=== PATIENT | male | born 1955 | race Caucasian/White ===

== ENCOUNTER → 2017-06-24 | Day surgery (SDC) | payer BC ==
[~2017-06-24] MED LIST: LIDOCAINE 1% PF 2 ML VIAL.; PROPOFOL 20 ML IV
[2017-06-24] MEDS: IV RINGERS,LACTATED 1000ML 1,000 ML IV (16:28)
== END | disposition home or self-care (01) ==
LOC: SURG 15:57
DX: K21.0 Gastro-esophageal reflux disease with esophagitis (principal); K29.50 Unspecified chronic gastritis without bleeding; K44.9 Diaphragmatic hernia without obstruction or gangrene; E78.5 Hyperlipidemia, unspecified; I10 Essential (primary) hypertension; E78.00 Pure hypercholesterolemia, unspecified; F10.99 Alcohol use, unspecified with unspecified alcohol-induced disorder; Z90.49 Acquired absence of other specified parts of digestive tract; Z88.0 Allergy status to penicillin; Z88.2 Allergy status to sulfonamides; Z79.82 Long term (current) use of aspirin; Z72.89 Other problems related to lifestyle
CPT/HCPCS: 43239; 88305; J2704

== ENCOUNTER → 2020-03-28 | Outpatient (CLI) | payer BC ==
[2017-06-24 17:56] VITALS: BP 150/94
[~2020-03-28] MED LIST changes: +ASPI325T8 PO; +CARV12.511 PO; +LANS30CA66 PO; -LIDOCAINE 1% PF 2 ML VIAL.; -PROPOFOL 20 ML IV; +SIMV80TA PO
--- NOTE | 2020-03-28 12:42 | RAD ---
EXAMINATION: Magnetic resonance imaging (MRI) of the lumbar spine without contrast 03/28/2020 11:15 AM HISTORY: Low back pain. Left sciatic nerve pain. TECHNIQUE: Multiplanar multi-weighted MRI of the lumbar spine was performed without intravenous contrast using the standard lumbar spine protocol. Contrast information: None administered. COMPARISON: None available. FINDINGS: There is minimal retrolisthesis of L4 on L5 and L5 on S1. Disc heights are maintained. Marrow signal intensity is normal in all sequences. There is disc desiccation at L2-L3, L3-L4 and L4-L5. Conus medullaris terminates at T12-L1. Distal spinal cord signal intensity is normal in all sequences. There is mild anterior marginal osteophytosis. Abdominal aorta is normal in caliber. No suspicious intraperitoneal abnormality is identified. Visualized portions of the sacrum appear intact. Paraspinal soft tissues are normal. L1-L2: The disc is normal in configuration. There is no facet arthropathy. There is no neuroforaminal stenosis. There is no spinal canal stenosis. L2-L3: There is a mild disc bulge. Mild facet arthropathy. Mild bilateral neuroforaminal stenosis. No spinal canal stenosis. L3-L4: There is a mild sequential disc bulge. Mild facet arthropathy. Mild to moderate left neuroforaminal stenosis. No spinal canal stenosis. There is a posteriorly projecting left facet synovial cyst measuring 3 mm. L4-L5: There is a disc bulge with central disc protrusion. Mild facet arthropathy ligamentum flavum infolding. Moderate bilateral neural foraminal stenosis, right greater than left. No significant spinal canal stenosis. L5-S1: The disc is normal in configuration. There is no facet arthropathy. There is no neuroforaminal stenosis. There is no spinal canal stenosis. IMPRESSION: Mild degenerative changes of the lumbar spine as described in detail above. Electronically signed by: Caprice Aguilera MD (03/28/2020 12:39 PM) [facility]
== END ==
LOC: MRI 10:48
PROVIDERS: ATTEND Family Medicine
DX: M47.816 Spondylosis without myelopathy or radiculopathy, lumbar region (principal); M43.17 Spondylolisthesis, lumbosacral region; M25.78 Osteophyte, vertebrae
CPT/HCPCS: 72148

== ENCOUNTER → 2020-04-25 | Outpatient (CLI) | payer BC ==
[2017-06-24 17:56] VITALS: BP 150/94
[~2020-04-25] MED LIST changes: +ACET500T68 PO; +IOHEXOL 180 MG/ML 10 ML VIAL. ONE; +OMEP20CA16 PO; +methylPREDNISolone ACETATE 40 MG/ML VIAL. ONE; +methylPREDNISolone ACETATE 80 MG/ML VIAL. ONE
--- NOTE | 2020-04-25 12:37 | PDOC1 ---
INITIAL PAIN CONSULT DATE OF SERVICE: DOS: DATE: 04/25/20 TIME: 12:31 CHIEF COMPLAINT: Chief Complaint: Low back and left lower extremity pain HISTORY OF PRESENT ILLNESS: 64-year-old male presents history of pain low back left lower extremity with 2 months now without any specific injury activities being increase his activity with decorating some [place] items and lifting boxes full of the renogram from his attic which seem to exacerbate the pain to some extent and is gotten worse since about . Patient reports no motor or sensory deficits but significant fatigability the left leg with standing walking especially with changing positions patient reports is better with sitting or laying down but can awaken from sleep about twice a each night patient reports he does not affect his bowel bladder control but does affect his ability to walk but is not use any assistive devices to ambulate. Patient describes the pain is in the low back and in the left lower extremity mostly in the posterior gluteus lateral aspect of the thigh lateral medial aspect of the left thigh into the medial knee and medial lower leg on the left. Patient scribes as constant sharp stabbing throbbing shooting with numbness radiating pain in the left lower extremity is aching and burning as well. Patient has been doing some stretching and exercises currently has not had any formal physical therapies or other treatments at this time but has been taking oral steroids which helped significantly by about 50%. Patient rates his disability rating 0-10 10 me the worst is an 8 with him home responsibilities and recreation 10 with occupation sexual behavior 2 with self-care activities and to a social activity. Patient did have an MRI scan of the lumbar spine showing L4-5 disc bulge with central disc protrusion mild facet arthropathy and moderate bilateral neuroforaminal stenosis right greater than left. L3-4 shows mild to moderate neuroforaminal stenosis on the left with a posteriorly projecting left facet synovial cyst at 3 mm. Patient reports no loss of motor function but significant fatigability of the left leg with walking and standing. PAST MEDICAL HISTORY: PMH: Hypertension, gastroesophageal reflux, hiatal hernia, hyperlipidemia, cluster headaches, arthritis PREVIOUS SURGERIES: Past Surgical Hx: Appendectomy 1981, cholecystectomy 2014, sinus surgery 2011, vasectomy CURRENT MEDICATIONS: Current Meds: Active Scripts Medications Dose Route/Sig Max Daily Dose Days Date Category Acetaminophen 500 Mg Tablet 1 Tab PO PRN Q6HRS PRN 15 04/25/20 Reported Omeprazole 20 Mg Capsule. 1 Cap PO DAILY 04/25/20 Reported Zocor (Simvastatin) 80 Mg Tablet 80 Mg PO HS 06/24/17 Reported Carvedilol (Carvedilol) 12.5 Mg Tablet 1 Tab PO BID 06/24/17 Reported ALLERGIES; Allergies: Coded Allergies: Penicillins (Verified Allergy, Severe, Swelling, 06/24/17) throat swelling Sulfa (Sulfonamide Antibiotics) (Verified Allergy, Severe, Anaphylaxis, 06/24/17) FAMILY HISTORY: Family Hx: No major medical conditions that he is aware of SOCIAL HISTORY: Social Hx: Patient drinks alcohol about 2 beers 3 times a week does not use any tobacco does not use any illegal illicit recreational drugs is lives with his spouse lives locally in 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 Extraocular movements are intact and symmetrical. Oral cavity: Mucous membranes moist and pink. Dentition is intact. NECK: Shows anterior throat supple without palpable lymphadenopathy noted. Swallow reflex symmetrical. CHEST: Shows normal on inspection. Breath sounds are clear bilaterally, no rales rhonchi wheezes. HEART: Shows S1, S2 clear. No murmurs auscultated. ABDOMEN: Soft, nontender, nondistended, obese. No palpable organomegaly is noted. No rebound or guarding demonstrated. BACK: Shows spine grossly in the midline. Normal-appearing cervical lordotic curvature. There is slightly increased thoracic kyphosis, some minor flattening of the lumbar lordotic curvature. Lumbar paraspinous muscles show symmetrical o n inspection, on palpation shows some moderate tenderness diffusely throughout the upper, middle and lower distribution of the paraspinous muscles bilaterally and also into the lower thoracic paraspinous musculature, firm and tender, but without specific trigger points, without radiation of pain. The patient has good rotational motion of the lumbar spine, both laterally as well as extension and flexion without significant difficulty. No tenderness over the spinous processes, sacrum or sacroiliac regions. EXTREMITIES: Lower extremities show deep tendon reflexes 2+ in the patellar and tendo calcaneus tendons. Motor exam is 5 on a scale of 5 with right dorsiflexion, extension, quadriceps and hamstring flexion and 4/5 on the left quadricep only otherwise 5 out of 5. Peripheral pulses are 1+ posterior tibial. No peripheral edema is noted bilaterally. Lower extremities are warm and dry to touch, equal in color and appearance. Straight leg raise noted to be negative bilaterally. Gaenslen's and Alverto's maneuvers are negative as well. The patient is able to stand, stand on his toes without difficulty or loss of balance walks with a normal-appearing gait does not appear to favor the right or left lower extremity significantly and is not use any assistive device such as canes or walkers to ambulate. SKIN: Shows warm and dry, good turgor. No edema. No sores, rashes or bruising throughout. IMPRESSION: Impression: 64-year-old male with approximate 2-month history increasing pain low back left lower extremity radicular fashion MRI scan lumbar spine as noted Hypertension Arthritis Plan: Options were discussed with patient including conservative medical management physical therapies interventional techniques. Patient elects interventional techniques. We discussed a lumbar epidural steroid injection using description as well as anatomical model to describe the procedure. Risks were discussed including but not limited to: Bleeding, infection, possibility of epidural hematoma and subsequent neurological compromise, dural puncture, headaches, spinal cord and/or nerve damage, side effects of steroid medication, and poor results regarding pain control. Patient understands wished to proceed. Patient will return to the clinic in approximate 2 weeks for follow-up was counseled as return appointment activity level and side effects to be aware of. Procedure is lumbar epidural steroid injection under local anesthetic using sterile prep and drape at the L4-5 level using C-arm fluoroscopic guidance in both AP and lateral views medications injected is 120 mg Depo-Medrol + 10 mL preservative-free normal saline and 2 mL contrast- condition at discharge is stable patient tolerated procedure well had no complications. LAKESHA ODOM MD Apr 25, 2020 12:37
== END | disposition home or self-care (01) ==
LOC: PNCL 09:55
PROVIDERS: ATTEND Anesthesiology
DX: M54.5 Low back pain (principal); M79.605 Pain in left leg; I10 Essential (primary) hypertension; K21.9 Gastro-esophageal reflux disease without esophagitis; M19.90 Unspecified osteoarthritis, unspecified site; E78.00 Pure hypercholesterolemia, unspecified; Z90.49 Acquired absence of other specified parts of digestive tract; Z79.899 Other long term (current) drug therapy; Z98.890 Other specified postprocedural states; Z72.89 Other problems related to lifestyle; Z88.0 Allergy status to penicillin; Z88.2 Allergy status to sulfonamides
CPT/HCPCS: 62323; J1030; J1040; Q9965

== ENCOUNTER → 2020-05-09 | Outpatient (CLI) | payer BC ==
[2017-06-24 17:56] VITALS: BP 150/94
--- NOTE | 2020-05-09 11:21 | PDOC ---
Progress Note - Pain Clinic Date of Service: DOS: DATE: 05/09/20 TIME: 11:18 Diagnosis: Dx: Lumbar radiculopathy with lumbar degenerative disc disease History or Present Illness: HPI: 64-year-old male returns follow-up status post lumbar epidural straight injection x1. Patient reports approximately 10% decrease in pain in the low back and left lower extremity. Patient reports still significant pain in the low back and left leg radiating the anterior lateral thigh anterior thigh medial thigh medial lower leg this is constant and burning with walking and standing and driving. Patient reports aching and sharp shooting burning and constant in the left leg patient reports is an 8 on scale 10 is worse over the past week 8 on average 6 its least is an 8 today. Patient ports still difficult to sleep at 90 sleeping in recliner because of the pain reports no new motor or sensory deficits however no new bowel or bladder incontinence. Physical Exam: VS: Blood pressure is 137/99 pulse 64 respiration 16 temperature 98.3 F weight is 195 pounds PE: PHYSICAL EXAMINATION: GENERAL: The patient is awake, alert, oriented, appropriate, very pleasant demeanor HEENT: Shows normocephalic, atraumatic. Extraocular movements are intact and s ymmetrical. NECK: Shows anterior throat supple without palpable lymphadenopathy noted. Swallow reflex symmetrical. CHEST: Shows normal on inspection. Breath sounds are clear bilaterally. HEART: Shows S1, S2 clear. No murmurs auscultated. ABDOMEN: Soft, nontender, nondistended, obese. No palpable organomegaly is noted. No rebound or guarding demonstrated. BACK: Shows spine grossly in the midline. Normal-appearing cervical lordotic curvature. There is slightly increased thoracic kyphosis, some minor flattening of the lumbar lordotic curvature. Lumbar paraspinous muscles show symmetrical on inspection, on palpation shows some moderate tenderness diffusely throughout the upper, middle and lower distribution of the paraspinous muscles, but without specific trigger points, without radiation of pain. The patient has good rotational motion of the lumbar spine, both laterally as well as extension and flexion without significant difficulty. EXTREMITIES: Lower extremities show deep tendon reflexes 2+ in the patellar and tendo calcaneus tendons. Motor exam is 5 on a scale of 5 with right dorsiflexion, extension, quadriceps and hamstring flexion and 4/5 on the left. Peripheral pulses are 1+ posterior tibial. No peripheral edema is noted bilaterally. Lower extremities are warm and dry to touch, equal in color and appearance. SKIN: Shows warm and dry, good turgor. No edema. No sores, rashes or bruising throughout. Procedure: Procedure: Options were discussed with the patient. Patient's old chart was reviewed his his current medication regimen updated current review of systems updated today as well. We will proceed with a second in the series lumbar epidural steroid ejections today with fluoroscopic guidance. Risks were discussed including but not limited to: Bleeding, infection, possibility of epidural hematoma and subsequent neurological compromise, dural puncture, headaches, spinal cord and/or nerve damage, side effects of steroid medication, and poor results regarding pain control. Patient understands wished to proceed. She will return to clinic in approximate 2 weeks for follow-up, was counseled as to return appointment activity level and side effects to be aware of. We will also make neurosurgical referral for evaluation per patient's request. Medication Injected: Med Injected: Procedure is lumbar epidural steroid injection under local anesthetic using sterile prep and drape at the L4-5 level using C-arm fluoroscopic guidance in both AP and lateral views medications injected is 120 mg Depo-Medrol + 10 mL preservative-free normal saline and 2 mL contrast- condition at discharge is stable patient tolerated procedure well had no complications. Condition at Discharge: Condition at Discharge: Condition at discharge stable, patient tolerated procedure well and had no complications. LAKESHA ODOM MD May 09, 2020 11:21
== END | disposition home or self-care (01) ==
LOC: PNCL 10:18
PROVIDERS: ATTEND Anesthesiology
DX: M51.16 Intervertebral disc disorders with radiculopathy, lumbar region (principal); I10 Essential (primary) hypertension; E78.00 Pure hypercholesterolemia, unspecified; K21.9 Gastro-esophageal reflux disease without esophagitis; Z90.49 Acquired absence of other specified parts of digestive tract; Z98.890 Other specified postprocedural states; Z79.899 Other long term (current) drug therapy; Z72.89 Other problems related to lifestyle; Z88.0 Allergy status to penicillin; Z88.2 Allergy status to sulfonamides
CPT/HCPCS: 62323; J1030; J1040; Q9965

== ENCOUNTER → 2020-05-22 | Outpatient (CLI) | payer BC ==
[2017-06-24 17:56] VITALS: BP 150/94
[~2020-05-22] MED LIST changes: +ASCO500C PO; +CHOL400T2 PO; +DOCU-109 PO; +GABA600T7 PO; +HYDR-2761 PO; -IOHEXOL 180 MG/ML 10 ML VIAL. ONE; +METH-38 PO; +ZINC50TA39 PO; -methylPREDNISolone ACETATE 40 MG/ML VIAL. ONE; -methylPREDNISolone ACETATE 80 MG/ML VIAL. ONE
--- NOTE | 2020-05-22 13:38 | EKG ---
[facility] [address] [place] [address] Test Date: 2020-05-22 Test Time: 13:32:09 Pat Name: ARON MARROQUIN Department: Room: Gender: M Quiller Runner: : 1955 Requested By: TIP VARGHESE Order Number: [id number] Reading MD: Houston Doherty MD Measurements Intervals [place] Rate: 62 P: 20 MT: 146 QRS: 5 QRSD: 80 T: 24 QT: 384 QTc: 392 Interpretive Statements SINUS RHYTHM Electronically Signed On 05-22-2020 15:52:21 CARD CLOTHIER by Houston Doherty MD
[2020-05-22 14:08] LABS: BASO % 1 % (0-3); EOS # 0.2 x10^3/uL (0.0-0.7); EOS % 3 % (0-3); HEMATOCRIT 36.5 % (39.0-53.0); LYMPH # 1.9 x10^3/uL (1.0-4.8); LYMPH % 27 % (24-48); MEAN CORPUSCULAR HEMOGLOBIN 34 pg (25-35); MEAN CORPUSCULAR HGB CONC 36 g/dL (31-37); MEAN CORPUSCULAR VOLUME 94 fL (79-100); MONO # 0.8 x10^3/uL (0.0-1.1); MONO % 12 % (0-9); NEUT % 58 % (31-73); PLATELET COUNT 189 x10^3/uL (140-400); RED BLOOD COUNT 3.88 x10^6/uL (4.30-5.70); RED CELL DISTRIBUTION WIDTH 13.3 % (11.5-14.5)
[2020-05-22 14:57] LABS: ALBUMIN 3.4 g/dL (3.4-5.0); ALBUMIN/GLOBULIN RATIO 0.9 (1.0-1.7); CALCIUM 8.7 mg/dL (8.5-10.1); CREATININE 1.2 mg/dL (0.7-1.3); POTASSIUM 4.1 mmol/L (3.5-5.1); TOTAL PROTEIN 7.3 g/dL (6.4-8.2)
--- NOTE | 2020-05-23 08:56 | RAD ---
EXAM: XR CHEST 2V INDICATION: Reason: congestion left lower lobe, hoarseness-preop eval-spine prehab class / Spl. Instr uctions: / History: . TECHNIQUE: PA and lateral views COMPARISON: None FINDINGS: The heart size is normal. The great vessels appear unremarkable. There is no hilar or mediastinal mass. Lungs show an ill-defined opacity in the left lung base. A circumscribed opacity projecting over the anterior right sixth rib is noted and likely represents a nipple shadow. There is no pleural effusion or pneumothorax. There are no significant osseous abnormalities. Included upper abdomen shows right upper quadrant clips suggesting previous cholecystectomy. IMPRESSION: Left lower lobe airspace opacity suspicious for pneumonia. Recommend follow-up to radiographic resolu tion. Electronically signed by: Samir Ospina MD (05/23/2020 8:54 AM) [id number]
--- NOTE | 2020-05-23 09:23 | NUR ---
Faxed pretesting results with attn to chest xray report to Dr Cheung and Dr Aguilera.
--- NOTE | 2020-05-23 10:15 | NUR ---
Spoke to Berkley @ Dr Aguilera's office regarding abnormal chest xray. Faxed the results to a different fax with attn to Berkley.
== END ==
LOC: SURGPAT 14:43
PROVIDERS: ATTEND Neurological Surgery
DX: Z01.812 Encounter for preprocedural laboratory examination (principal); Z20.822 Contact with and (suspected) exposure to COVID-19; M51.16 Intervertebral disc disorders with radiculopathy, lumbar region
CPT/HCPCS: 36415; 71046; 80053; 85025; 87641; 93005

== ENCOUNTER → 2020-06-01 | Outpatient (CLI) | payer BC ==
[2017-06-24 17:56] VITALS: BP 150/94
== END ==
LOC: LAB 13:06
PROVIDERS: ATTEND Neurological Surgery
DX: Z01.812 Encounter for preprocedural laboratory examination (principal); M51.16 Intervertebral disc disorders with radiculopathy, lumbar region; Z20.822 Contact with and (suspected) exposure to COVID-19
CPT/HCPCS: U0003

== ENCOUNTER 2020-06-05 07:21 | Day surgery (SDC) | payer BC ==
--- NOTE | 2020-05-31 15:44 | HP ---
ADMIT DATE: 06/05/2020 PREOPERATIVE HISTORY AND PHYSICAL HISTORY OF PRESENT ILLNESS: The patient is a pleasant 64-year-old man who is having difficulty with low back pain and pain that radiates into his left hip and left groin area as well as in her thigh and extends to the knee and the medial aspect of the leg. The problem has been severe. He said that it began on 03/15/2020, without inciting event. He rates his pain 7/10, constantly, but the pain can reach 10/10. He is taking Tylenol. He had epidural steroid injections, which gave him minimal relief. CURRENT MEDICATIONS: Tylenol, omeprazole, Coreg, simvastatin. PAST MEDICAL HISTORY: Hypertension. PAST SURGICAL HISTORY: Appendectomy, vasectomy, sinus surgery, cholecystectomy. FAMILY HISTORY: Diabetes, hypertension. 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 . Does not smoke. Drinks alcohol 1-2 times per week. ALLERGIES: PENICILLIN AND SULFA. REVIEW OF SYSTEMS: A 12-point review of systems was performed and is noncontributory except that mentioned above. PHYSICAL EXAMINATION: GENERAL: Alert, pleasant, in no acute distress. HEAD: Normocephalic, atraumatic. SKIN: Warm and dry. MUSCULOSKELETAL: Lumbar paraspinal muscle bulk is normal, restricted range of motion of the lumbar spine, [id number] tenderness of the lower lumbar spine with palpation, normal range of motion of the lower extremities bilaterally. EXTREMITIES: No clubbing, cyanosis or edema. NEUROLOGIC: Alert and oriented x 3. Normal recent and remote memory. Strength is 5/5 in the lower extremities except left quadriceps and hip flexor strength, which was 4/5, sensory was intact to light touch in the lower extremities bilaterally, reflexes were trace and symmetric in the lower extremities bilaterally, negative straight leg raising bilaterally, forward stooped gait. IMAGING: I reviewed a lumbar MRI scan. On the study, the left neural foramen at L3-L4 is full from a foraminal disk herniation. ASSESSMENT AND PLAN: I believe that he has a foraminal/far lateral disk herniation at L3-L4 on the left, which is markedly compressing the left L3 root. My recommendation is that he undergo a transforaminal/far lateral approach and decompress this to see if this will help him. I discussed the surgery with him in detail including the rationale, technique, risk and expected postoperative course. He understands and would like to go ahead. TIP VARGHESE MD DR: RANJIT/buster JOB#: [id number] / [id number] CITLALI
[~2020-06-05] VITALS: Ht 177.8 cm; Wt 83.9 kg
[~2020-06-05 07:21] MED LIST changes: +BACITRACIN 50,000 UNIT in IV NORMAL SALINE 1000ML BAG 1,000 ML IRR ONE; -DOCU-109 PO; +GELATIN SPONGE SIZE 100. ONE; -HYDR-2761 PO; +HYDROmorphone 2 MG/ML VIAL IVP PRN; +IV RINGERS,LACTATED 1000ML 1,000 ML IV SCH; +KETOROLAC 60 MG/2 ML VIAL. ONE; -METH-38 PO; +MORPHINE SULFATE 2 MG/ML VIAL. IVP PRN; +PROCHLORPERAZINE 10 MG/2 ML VIAL. IVP PRN; +THROMBIN TOPICAL 20,000 UNIT SPRAY.SYRN KIT TP ONE; +VANCOMYCIN 1GM IVPB FOR OMNI 250 ML IV PRN; +fentaNYL PF VIAL 100 MCG/2 ML VIAL IVP PRN
[2020-06-05] MEDS ORDERED: BUPIVACAINE-EPI 0.5%-1:200000 MPF 30 ML VIAL. ONE (07:22)
--- NOTE | 2020-06-05 07:55 | RAD ---
XR CHEST 2V INDICATION: pre op, prior pneumonia / Spl. Instructions: / History: . COMPARISON STUDY: 05/22/2020. FINDINGS: Lungs: Normal lung volume. No pulmonary mass or consolidation. The tracheobronchial tree and hilar st ructures are normal. Pleura: No pleural effusion or pneumothorax. Heart and Mediastinum: The cardiomediastinal silhouette is normal. The great vessels of the thorax ar e normal. Bones and Soft Tissues: Degenerative changes of the spine. IMPRESSION: No consolidation. Electronically signed by: Marin Garcia MD (06/05/2020 7:53 AM) [id number]
[2020-06-05] MEDS ORDERED: DESFLURANE > 120 MINUTES IH ONE ×2 (08:25)
[2020-06-05] MEDS ORDERED: GLYCOPYRROLATE 1 MG/5 ML VIAL. ONE (08:25)
[2020-06-05] MEDS ORDERED: REMIFENTANIL 2 MG VIAL. IV ONE (08:26)
[2020-06-05] MEDS ORDERED: ROCURONIUM 50 MG/5 ML VIAL. ONE (08:26)
[2020-06-05] MEDS ORDERED: fentaNYL PF VIAL 100 MCG/2 ML VIAL ONE ×4 (08:26)
[2020-06-05] MEDS ORDERED: NEOSTIGMINE METHYLSULFATE 5 MG/5 ML SYRINGE. ONE (08:26)
[2020-06-05] MEDS ORDERED: MIDAZOLAM HCL/PF 2 MG/2 ML VIAL. ONE (08:26)
[2020-06-05] MEDS ORDERED: PHENYLEPHRINE 10 MG/ML VIAL. ONE (08:29)
[2020-06-05 08:40] LABS: BASO % 0 % (0-3); EOS # 0.1 x10^3/uL (0.0-0.7); EOS % 3 % (0-3); HEMATOCRIT 36.2 % (39.0-53.0); HEMOGLOBIN 12.6 g/dL (13.0-17.5); LYMPH # 1.8 x10^3/uL (1.0-4.8); LYMPH % 35 % (24-48); MEAN CORPUSCULAR HEMOGLOBIN 33 pg (25-35); MEAN CORPUSCULAR HGB CONC 35 g/dL (31-37); MEAN CORPUSCULAR VOLUME 96 fL (79-100); MONO # 0.7 x10^3/uL (0.0-1.1); MONO % 14 % (0-9); NEUT # 2.6 x10^3/uL (1.8-7.7); NEUT % 49 % (31-73); PLATELET COUNT 197 x10^3/uL (140-400); RED BLOOD COUNT 3.79 x10^6/uL (4.30-5.70); RED CELL DISTRIBUTION WIDTH 13.7 % (11.5-14.5); WHITE BLOOD COUNT 5.3 x10^3/uL (4.0-11.0)
[2020-06-05] MEDS ORDERED: PROPOFOL 50 ML IV ONE ×2 (09:51→11:27)
[2020-06-05] MEDS ORDERED: PROPOFOL 0 ML IV ONE (09:51)
[2020-06-05] MEDS ORDERED: PROPOFOL 10 MG/ML (20ML) VIAL. IV ONE (09:52)
[2020-06-05] MEDS ORDERED: LIDOCAINE 2% PF 5 ML VIAL. ONE (09:52)
[2020-06-05] MEDS ORDERED: DEXAMETHASONE SOD PHOS 4 MG/ML VIAL ONE (09:52)
[2020-06-05] MEDS ORDERED: ONDANSETRON PF 4 MG/2 ML VIAL. ONE (09:52)
[2020-06-05] MEDS ORDERED: REMIFENTANIL 1 MG VIAL. IV ONE (11:26)
[2020-06-05] MEDS ORDERED: HYDROcodone/APAP 5/325MG 1 TAB TABLET PO ONE ×2 (12:30)
--- NOTE | 2020-06-05 12:38 | OP ---
DATE OF SURGERY: 06/05/2020 PREOPERATIVE DIAGNOSIS: Foraminal and extraforaminal disc herniation at L3-L4, left. POSTOPERATIVE DIAGNOSIS: Foraminal and extraforaminal disc herniation at L3-L4, left. OPERATION PERFORMED: Left foraminal exposure with removal of herniated foraminal disc and decompression of the left L3 nerve root. The operation was done with EMG monitoring, SSEP monitoring, fluoroscopy, microscopic dissection. SURGEON: Bernardo Varghese M.D. HI TEACHER: MERARI Vázquez assisted with the surgery. She assisted with the exposure, the microdecompression, microdiscectomy as well as the closure. OPERATIVE INDICATIONS: The patient is a pleasant 64-year-old man who developed intractable back and severe left leg pain. On imaging studies, he was found to have a large foraminal and extraforaminal disc herniation at L3-L4, left. He failed conservative measures, I recommended lumbar microsurgery. I discussed this with the patient and his who understood the surgery very well as well as the risks. DESCRIPTION OF PROCEDURE: Following general endotracheal anesthesia, the patient was positioned prone on the Deep table. Lumbar region prepped and draped in standard fashion. NADEEN hose and AV impulse boots were applied for DVT prophylaxis. A microscope was draped. Fluoroscopy was draped and brought in the field. Vancomycin 1 gram was given prior to surgery. Using fluoroscopic guidance, incision was made lateral to the L3-L4 disc space on the left side, dissected down through skin and subcutaneous tissue and I brought out and exposed the facet. I brought in the microscope and drilled the lateral portion of the facet and trimmed some of this away, so I could simply gain access to the foramen. The nerve was readily visualized and it was lifted and it was very tightly compressed. It was difficult for me to reach around the lateral aspect of the nerve and to reach the disc. I then took more bone medially and as I worked medially, I was able to gain exposure to the medial side of the nerve root, working inferiorly, there was a large disc herniation, which was scarred up against the anteromedial nerve and I gently it and began to remove disc in a piecemeal fashion. Some of the disk came out in larger pieces. Other parts of the disc were densely adherent to the undersurface of the nerve. As I worked, the nerve became very well decompressed. I irrigated, explored carefully and I felt that I had an excellent decompression. Hemostasis was excellent throughout. I removed the retractor, obtained hemostasis in the muscle and I closed the wound in layers with absorbable suture. The skin was closed with 4-0 subcuticular stitch. I felt the surgery went very well. BERNARDO VARGHESE MD DR: ROM/buster JOB#: [id number] / [id number] CITLALI
[2020-06-05] MEDS ORDERED: HYDR-2761 PO (12:56)
[2020-06-05] MEDS ORDERED: DOCU-109 PO (12:56)
[2020-06-05] MEDS ORDERED: METH-38 PO (12:56)
--- NOTE | 2020-06-05 12:59 | DISCH ---
DISCHARGE INSTRUCTIONS Condition on Discharge Condition on Discharge: Stable Activity After Discharge Activity Instructions for Disc: Activity as tolerated, Avoid exertion Other activity instructions: no driving for a week Bathing Instructions: Shower-keep dressing dry Lifting Instructions after Dis: No heavy lifting, No pulling or pushing, Do not lift >10 pounds Diet after Discharge Additional Diet Restrictions: resume home diet Wound Incision Care Wound/Incision Care: Ice to area for comfort Other wound/incision instructi: may remove dressing in 48 hours if dry then may shower, no soaking Contacting the after DC Call your doctor for: Concerns you may have Follow-Up Follow up with: Dr. Varghese's nurse in 2 weeks [phone] TIP VARGHESE MD Jun 05, 2020 12:59
[2020-06-05 13:04] VITALS: BP 130/83
--- NOTE | 2020-06-07 14:12 | PATHOLOGY ---
[facility] Accession Number: [id number] . 01 Material submitted: . vertebral column - LUMBAR DISC AND DECOMPRESSION . 01 Clinical history: . TRANSFORAMINAL LUMBAR MICRODISCECTOMY L3-4 . 02 Diagnosis: Segments of fibrocartilaginous, adipose, and skeletal muscle tissue and bone, lumbar disc and decompression: - Degenerative changes of fibrocartilaginous tissue. (JPM:ingot caster; 06/07/2020) MBR 06/07/2020 1159 Local . 02 Comment: There is no evidence of an acute inflammatory process or malignancy. (JPM:ingot caster; 06/07/2020) . 02 Electronically signed: . Omar Odonnell MD, Pathologist NPI- [id number] . 01 Gross description: . The specimen is received in formalin, labeled "Omar Holly, lumbar disc and decompression". Received are multiple segments of pink-tee gritty tissue admixed with possible bone measuring 2.8 x 1.8 x 0.3 cm in aggregate dimensions. The specimen is filtered and entirely submitted in cassette A1, following light decalcification. (CAA; 06/06/2020) QAC/QAC 06/06/2020 1300 Local . 02 Pathologist provided ICD-10: Z03.89 . 02 CPT . 477251, 351330 Specimen Comment: A courtesy copy of this report has been sent to [phone] Specimen Comment: Report sent to Performed at: 01 [facility] [address], [place] [id number] MD Ilya Oilver MD Phone: [phone] Performed at: 02 [facility] [address], [place] [id number] MD Omar Odonnell MD Phone: [phone]
== END 2020-06-05 14:45 | disposition home or self-care (01) ==
LOC: SURG 07:21
PROVIDERS: ATTEND Neurological Surgery
DX: M51.16 Intervertebral disc disorders with radiculopathy, lumbar region (principal); E78.00 Pure hypercholesterolemia, unspecified; I10 Essential (primary) hypertension; K21.9 Gastro-esophageal reflux disease without esophagitis; Z90.49 Acquired absence of other specified parts of digestive tract; Z98.890 Other specified postprocedural states; Z79.899 Other long term (current) drug therapy; Z72.89 Other problems related to lifestyle; Z88.0 Allergy status to penicillin; Z88.2 Allergy status to sulfonamides
CPT/HCPCS: 36415; 63056; 71046; 85025; 97116; 97162; 97530; J1100; J1885; J2250; J2370; J2405; J2704; J2710; J3010; J3370; J3490; J7030; J7120; 76000; 88304; 88311